=== PATIENT | male | born 1995 | race Two or more races ===

== ENCOUNTER 2019-02-25 08:13 | Emergency (ER) | payer BC ==
[~2019-02-25] VITALS: Ht 170.2 cm; Wt 66.7 kg
--- NOTE | 2019-02-25 08:18 | NUR ---
PT BIBRA FROM HOME C/O OF HIGH BLOOD SUGAR AND VOMITING, PT IS AAOX4, NOT IN RESPIRATORY DISTRESS, HOOKED TO MONITOR, KEPT RESTED AND COMFORTABLE, WILL CONTINUE TO MONITOR.
--- NOTE | 2019-02-25 08:23 | NUR ---
SEEN AND EXAMINED BY
[2019-02-25] MEDS ORDERED: diphenhydrAMINE HCL 50 MG/ML VIAL IV ONE (08:30)
[2019-02-25] MEDS ORDERED: ONDANSETRON HCL/PF 4 MG/2 ML VIAL IVP ONE (08:30)
[2019-02-25] MEDS ORDERED: IV NS 0.9% 1,000 ML BAG IV ONE (08:30)
[2019-02-25] MEDS ORDERED: METOCLOPRAMIDE HCL 10 MG/2 ML VIAL IV ONE (08:30)
--- NOTE | 2019-02-25 08:32 | NUR ---
IV LINE ESTABLISHED, BLOOD DRAWNED AND SENT TO LAB.
[2019-02-25] MEDS ORDERED: diphenhydrAMINE HCL 50 MG/ML VIAL ONE (08:33)
[2019-02-25] MEDS ORDERED: ONDANSETRON HCL/PF 4 MG/2 ML VIAL ONE ×3 (08:34→12:19)
[2019-02-25] MEDS ORDERED: METOCLOPRAMIDE HCL 10 MG/2 ML VIAL ONE (08:34)
[2019-02-25 08:49] LABS: BASOPHILS # (AUTO) 0.1 /CMM (0.0-0.2); BASOPHILS % (AUTO) 1.3 % (0.0-2.0); EOSINOPHILS % (AUTO) 2.9 % (0.0-6.0); HEMATOCRIT 48 % (39-51); HEMOGLOBIN 17.1 g/dL (13.5-17.5); LYMPHOCYTES # (AUTO) 1.6 /CMM (0.8-4.8); LYMPHOCYTES % (AUTO) 27.3 % (20.0-44.0); MEAN CORPUSCULAR HGB CONC 35 g/dl (31.0-36.0); MEAN CORPUSCULAR VOLUME 95 fL (80-96); MONOCYTES # (AUTO) 0.6 /CMM (0.1-1.30); MONOCYTES % (AUTO) 10.7 % (2.0-12.0); NEUTROPHILS # (AUTO) 3.5 /CMM (1.8-8.9); NEUTROPHILS % (AUTO) 57.8 % (43.0-81.0); PLATELET COUNT (AUTO) 275 /CMM (150-450); RED BLOOD CELL COUNT(AUTO) 5.08 MIL/uL (4.5-6.0)
[2019-02-25 09:02] LABS: ALBUMIN 4.6 g/dL (3.4-5.0); BILIRUBIN,DIRECT 0.1 mg/dL (0.0-0.2); BILIRUBIN,TOTAL 0.8 mg/dL (0.2-1.0); CALCIUM, SERUM 9.2 mg/dL (8.5-10.1); CREATININE 1.1 mg/dL (0.6-1.3); POTASSIUM 3.8 mmol/L (3.5-5.1); TOTAL PROTEIN, SERUM 7.8 g/dL (6.4-8.2)
[2019-02-25] MEDS ORDERED: INSULIN REGULAR, HUMAN 100 UNIT/ML 10 ML VIAL ONE (09:30)
[2019-02-25] MEDS ORDERED: IV NS 0.9% 1,000 ML IV ONE ×2 (09:30→10:30)
[2019-02-25] MEDS ORDERED: INSULIN REGULAR, HUMAN 100 UNIT/ML 10 ML VIAL SQ ONE (09:30)
[2019-02-25] MEDS ORDERED: ONDANSETRON HCL/PF - ER 4 MG/2 ML VIAL IV ONE ×2 (09:30→12:30)
[2019-02-25] MEDS ORDERED: IV NS 0.9% 1,000 ML IV PRN (10:38)
--- NOTE | 2019-02-25 10:57 | NUR ---
CALLED DR. STANFORD [phone]
[2019-02-25] MEDS ORDERED: HYDROCODONE/APAP 5/325MG 1 EACH TABLET PO PRN (11:00)
[2019-02-25] MEDS ORDERED: *INSULIN REGULAR(HUMULIN R)HUM 100 UNIT/ML VIAL SQ PRN (11:00)
[2019-02-25] MEDS ORDERED: DEXTROSE 50%-WATER 50 ML DISP.SYRIN IV PRN (11:00)
[2019-02-25] MEDS ORDERED: ACETAMINOPHEN 325 MG TABLET PO PRN (11:00)
[2019-02-25] MEDS ORDERED: Z GUARD REMEDY 2 OZ OINT TP PRN (11:00)
[2019-02-25] MEDS ORDERED: MAGNESIUM HYDROXIDE 30 ML UDC PO PRN (11:00)
[2019-02-25] MEDS ORDERED: ONDANSETRON HCL/PF 4 MG/2 ML VIAL IVP PRN (11:00)
[2019-02-25] MEDS ORDERED: INSULIN REGULAR, HUMAN 100 UNIT/ML 3 ML VIAL SQ PRN (11:00)
[2019-02-25] MEDS ORDERED: MAG HYDROX/AL HYDROX/SIMETH 30 ML UDC PO PRN (11:00)
[2019-02-25] MEDS ORDERED: MORPHINE SULFATE INJ 2 MG/ML DISP.SYRIN IV PRN (11:00)
[2019-02-25] MEDS ORDERED: BLOOD SUGAR DIAGNOSTIC 1 EACH STRIP VI SCH (12:00)
--- NOTE | 2019-02-25 13:08 | NUR ---
MEKA RODRIGUEZ TO [facility] (DIRECT ADMIT WHEN BED AVAILABLE) ETA 1440 TRIP#[id number]
--- NOTE | 2019-02-25 13:27 | NUR ---
TRANSFER INFO: PER [facility] AARON PELAYO ACCEPTED AT [facility] BY DR STANFORD. WILL GO TO ER TO AWAIT BED ASSIGNMENT FOR DIRECT ADMISSION. RN FOR REPORT [phone] ASK FOR [employer]ER.
--- NOTE | 2019-02-25 13:35 | NUR ---
REPORT GIVEN TO ALYSHA DUMONT OF [facility].
--- NOTE | 2019-02-25 13:46 | NUR ---
[facility] ETA 1442
--- NOTE | 2019-02-25 14:12 | NUR ---
[facility] DIRECT ADMIT TO ROOM [id number] RN FOR REPORT [phone]
--- NOTE | 2019-02-25 14:15 | NUR ---
REPORT GIVEN TO LAYSHA HANDLEY OF [facility] FOR [facility].
[2019-02-25 14:46] VITALS: BP 102/61
--- NOTE | 2019-02-25 14:46 | NUR ---
REPORT GIVEN TO EMT FOR PT TRANSFER.
[2019-02-26] MEDS ORDERED: PANTOPRAZOLE 40 MG VIAL IV SCH (09:00)
== END 2019-02-25 14:49 | disposition short-term general hospital (02) ==
LOC: ER 08:15
DX: E10.65 Type 1 diabetes mellitus with hyperglycemia (principal); R11.2 Nausea with vomiting, unspecified
CPT/HCPCS: 36415; 80048; 80076; 82010; 82962 ×2; 83690; 85025; 96361; 96372; 96374; 96375; 96376; 99285; A4216; J1200; J1815; J2405 ×3; J2765; J7030 ×3